=== PATIENT | male | born 1980 | race Caucasian/White ===

== ENCOUNTER 2020-08-22 08:14 | Emergency (ER) | payer BC, OTHER ==
[~2020-08-22] VITALS: Ht 187.2 cm; Wt 134.0 kg
--- NOTE | 2020-08-22 08:17 | ED Chest Pain ---
General Stated Complaint: CHEST PAIN; LT ARM TINGLING History of Present Illness Date Seen by Provider: Aug 22, 2020 Time Seen by Provider: 08:14 Initial Comments 39-year-old male presents with some chest pain. Patient reports that about an hour ago he had a sharp stabbing pain in his left chest. That that has resolved. Now he feels like he has some "really bad indigestion" he does have some left arm tingling. He took 181 mg baby aspirin along with a half of Xanax. Patient reports he has a history of panic attacks but has not had any in quite a while. Patient also reports he has high cholesterol and high blood pressure. Has some mild shortness of breath is resolved. He is not actively having pain but just a feeling of indigestion. He denies any nausea or vomiting. He did not have any diaphoresis. He reports no cough fevers chills or other systemic complaints. Allergies and Home Medications Allergies Coded Allergies: No Known Drug Allergies (Unverified , 08/22/20) Patient Home Medication List Home Medication List Reviewed: Yes Review of Systems Review of Systems Constitutional: No chills, No fever EENTM: No Symptoms Reported Respiratory: See HPI; Denies Cough; Shortness of Air, SOA With Exertion, SOA at Rest; Denies Wheezing Cardiovascular: Chest Pain; Denies Irregular Heart Rate, Denies Lightheadedness Gastrointestinal: See HPI; Denies Abdominal Pain, Denies Nausea, Denies Vomiting Genitourinary: No Symptoms Reported Musculoskeletal: no symptoms reported Skin: no symptoms reported Psychiatric/Neurological: See HPI, Paresthesia Past Kaltter-Hlfaop-Uobjvp Hx Family Medical History Reviewed Nursing Family Hx Physical Exam Vital Signs Vital Signs - First Documented 08/22/20 08:15 Temp 36.4 Pulse 81 Resp 14 B/P (MAP) 155/84 (107) Pulse Ox 98 O2 Delivery Room Air Capillary Refill : Height, Weight, BMI Height: '" Weight: lbs. oz. kg; BMI Method: General Appearance: No Apparent Distress HEENT: PERRL/EOMI, Normal ENT Inspection, Moist Mucous Membranes Neck: Non Tender, Supple Respiratory: Lungs Clear, Normal Breath Sounds, No Accessory Muscle Use Cardiovascular: Regular Rate, Rhythm, No Edema Gastrointestinal: Non Tender, Soft Extremity: Normal Capillary Refill, Normal Inspection Neurologic/Psychiatric: Alert, Oriented x3, Normal Mood/Affect, blow up operator II-XII Norm as Tested Skin: Normal Color, Warm/Dry Progress/Results/Core Measures Results/Orders Lab Results Laboratory Tests Test 08/22/20 08:20 08/22/20 10:12 Range/Units White Blood Count 4.8 4.3-11.0 10^3/uL Red Blood Count 4.82 4.35-5.85 10^6/uL Hemoglobin 15.1 13.3-17.7 G/DL Hematocrit 44 40-54 % Mean Corpuscular Volume 91 80-99 FL Mean Corpuscular Hemoglobin 31 25-34 PG Mean Corpuscular Hemoglobin Concent 34 32-36 G/DL Red Cell Distribution Width 12.6 10.0-14.5 % Platelet Count 187 130-400 10^3/uL Mean Platelet Volume 10.4 7.4-10.4 FL Immature Granulocyte % (Auto) 0 % Neutrophils (%) (Auto) 55 42-75 % Lymphocytes (%) (Auto) 34 12-44 % Monocytes (%) (Auto) 10 0-12 % Eosinophils (%) (Auto) 1 0-10 % Basophils (%) (Auto) 0 0-10 % Neutrophils # (Auto) 2.9 1.8-7.8 X 10^3 Lymphocytes # (Auto) 1.7 1.0-4.0 X 10^3 Monocytes # (Auto) 0.5 0.0-1.0 X 10^3 Eosinophils # (Auto) 0.1 0.0-0.3 10^3/uL Basophils # (Auto) 0.0 0.0-0.1 10^3/uL Immature Granulocyte # (Auto) 0.0 0.0-0.1 10^3/uL Sodium Level 139 135-145 MMOL/L Potassium Level 4.2 3.6-5.0 MMOL/L Chloride Level 104 98-107 MMOL/L Carbon Dioxide Level 25 21-32 MMOL/L Anion Gap 10 5-14 MMOL/L Blood Urea Nitrogen 11 7-18 MG/DL Creatinine 1.21 0.60-1.30 MG/DL Estimat Glomerular Filtration Rate > 60 BUN/Creatinine Ratio 9 Glucose Level 187 H 70-105 MG/DL Calcium Level 9.1 8.5-10.1 MG/DL Corrected Calcium 8.9 8.5-10.1 MG/DL Magnesium Level 1.9 1.6-2.4 MG/DL Total Bilirubin 0.6 0.1-1.0 MG/DL Aspartate Amino Transf (AST/SGOT) 49 H 5-34 U/L Alanine Aminotransferase (ALT/SGPT) 76 H 0-55 U/L Alkaline Phosphatase 83 40-136 U/L Myoglobin 114.9 H 10.0-92.0 NG/ML Troponin I < 0.30 < 0.30 <0.30 NG/ML Total Protein 7.3 6.4-8.2 GM/DL Albumin 4.2 3.2-4.5 GM/DL Lipase 23 8-78 U/L My Orders Orders - RANDOLPH,PARVEZ L DO Cbc With Automated Diff (08/22/20 08:18) Magnesium (08/22/20 08:18) Chest 1 View Ap/Pa Only (08/22/20 08:18) Ekg Tracing (08/22/20 08:18) Comprehensive Metabolic Panel (08/22/20 08:18) Myoglobin Serum (08/22/20 08:18) Protime With Inr (08/22/20 08:18) Partial Thromboplastin Time (08/22/20 08:18) Monitor-Rhythm Ecg Trace Only (08/22/20 08:18) Lipid Panel (08/23/20 06:00) Aspirin Chewable Tablet (Baby Aspirin Ch (08/22/20 08:30) Ed Iv/Invasive Line Start (08/22/20 08:18) Troponin I Fs (08/22/20 08:18) Famotidine Injection (Pepcid Injection) (08/22/20 08:18) Lipase (08/22/20 09:10) Troponin I Fs (08/22/20 10:11) Medications Given in ED Current Medications Medications Dose Ordered Sig/Margaret Route Start Time Stop Time Status Last Admin Dose Admin Aspirin 324 mg ONCE ONCE PO 08/22/20 08:30 08/22/20 08:31 DC 08/22/20 08:33 324 MG Vital Signs/I&O 08/22/20 08/22/20 08:15 08:15 Temp 36.4 Pulse 81 Resp 14 B/P (MAP) 155/84 (107) Pulse Ox 98 O2 Delivery Room Air Room Air Progress Progress Note : Progress Note Patient symptoms have resolved with Protonix. He had a negative EKG, negative chest x-ray and 2 - troponins. This time it does not appear to be acute cardiac event. I did discuss with him the need to follow-up with his primary care provider for further outpatient evaluation and cardiology consult. Patient stable and ready to be discharged Initial ECG Impression Date: Aug 22, 2020 Initial ECG Impression Time: 08:15 Initial ECG Rate: 79 Initial ECG Rhythm: Normal Sinus Initial ECG Intervals: Normal Initial ECG Impression: Normal Comment No acute findings Diagnostic Imaging Diagonstic Imaging: Xray Plain Films/CT/US/NM/MRI: chest Comments Date of Exam:08/22/20 CHEST 1 VIEW AP/PA ONLY INDICATION: Chest pain COMPARISON: None FINDINGS: Single view of the chest demonstrates clear lungs bilaterally. Heart is normal. There is no pneumothorax. The osseous structures are normal. IMPRESSION: Negative chest Departure Impression Primary Impression: Chest pain Qualified Codes: R07.9 - Chest pain, unspecified Disposition: 01 HOME, SELF-CARE Condition: Stable Departure-Patient Inst. Patient Instructions: Heart Healthy Diet, Chest Pain (DC), Chest Pain That Is Not Caused by the Heart (DC) Add. Discharge Instructions: Follow-up with your primary care provider for further evaluation and consideration of a cardiology consult. Return the ER as needed PARVEZ RANDOLPH DO Aug 22, 2020 08:17
[2020-08-22] MEDS ORDERED: FAMOTIDINE 20MG/2ML IV (PEPCID) IV STA (08:18)
[2020-08-22] MEDS ORDERED: ASPIRIN 81 MG CHEW (CHILDREN'S ASA) PO ONE (08:30)
--- NOTE | 2020-08-22 08:38 | Diagnostic Imaging Report ---
INDICATION: Chest pain COMPARISON: None FINDINGS: Single view of the chest demonstrates clear lungs bilaterally. Heart is normal. There is no pneumothorax. The osseous structures are normal. IMPRESSION: Negative chest Dictated by: Dictated on workstation # [id number]
[2020-08-22 08:59] LABS: HEMATOCRIT 44 % (40-54); HEMOGLOBIN 15.1 G/DL (13.3-17.7); MEAN CORPUSCULAR HEMOGLOBIN 31 PG (25-34); MEAN CORPUSCULAR HGB CONC 34 G/DL (32-36); MEAN CORPUSCULAR VOLUME 91 FL (80-99); PLATELET COUNT 187 10^3/uL (130-400); WHITE BLOOD COUNT 4.8 10^3/uL (4.3-11.0)
[2020-08-22 09:00] LABS: BASOPHILS % (AUTO) 0 % (0-10); EOSINOPHILS # (AUTO) 0.1 10^3/uL (0.0-0.3); EOSINOPHILS % (AUTO) 1 % (0-10); LYMPHOCYTES # (AUTO) 1.7 X 10^3 (1.0-4.0); LYMPHOCYTES % (AUTO) 34 % (12-44); MEAN PLATELET VOLUME 10.4 FL (7.4-10.4); MONOCYTES # (AUTO) 0.5 X 10^3 (0.0-1.0); MONOCYTES % (AUTO) 10 % (0-12); NEUTROPHILS # (AUTO) 2.9 X 10^3 (1.8-7.8); NEUTROPHILS % (AUTO) 55 % (42-75)
[2020-08-22 09:02] LABS: ALANINE AMINOTRANSFERASE 76 U/L (0-55); ALKALINE PHOSPHATASE 83 U/L (40-136); BILIRUBIN,TOTAL 0.6 MG/DL (0.1-1.0); BUN/CREATININE RATIO 9; CALCIUM 9.1 MG/DL (8.5-10.1); CARBON DIOXIDE 25 MMOL/L (21-32); CHLORIDE 104 MMOL/L (98-107); CREATININE SERUM 1.21 MG/DL (0.60-1.30); GFR ESTIMATED > 60; GLUCOSE 187 MG/DL (70-105); MAGNESIUM 1.9 MG/DL (1.6-2.4); POTASSIUM 4.2 MMOL/L (3.6-5.0); SODIUM 139 MMOL/L (135-145); TOTAL PROTEIN 7.3 GM/DL (6.4-8.2)
[2020-08-22 09:03] LABS: ALBUMIN 4.2 GM/DL (3.2-4.5)
[2020-08-22 10:50] VITALS: BP 152/79
== END 2020-08-22 10:50 | disposition home or self-care (01) ==
LOC: ER FS 08:14
DX: R07.9 Chest pain, unspecified (principal)
CPT/HCPCS: 36415; 71045; 80053; 83690; 83735; 83874; 84484; 85025; 93005; 93041